=== PATIENT | female | born 1945 | race African-American/Black ===

== ENCOUNTER 2017-02-09 19:22 | Emergency (ER) | payer OTHER ==
[2017-02-09 19:56] VITALS: BP 122/63; PULSE 79; TEMP 97.9; BMI 34.7
--- NOTE | 2017-02-09 20:37 | PDOC ---
History of Present Illness - General Chief Complaint: Injury Stated Complaint: INJURY Time Seen by Provider: 02/09/17 20:13 History Source: Patient Exam Limitations: No Limitations - History of Present Illness Initial Comments: 02/09/17 20:32 Patient a 71F with a pmh significant for uncontrolled diabetes here today complaining of a head injury. At noon today, a door that she was attempting to fix fell and landed on her forehead. She denies trauma to any other location. She denies any precipitating event before the event, including dizziness, lightheadedness, feeling sweaty or nauseous. She denies loss of consciousness, nausea, vomiting, focal neuro deficits, chest pain and shortness of breath. She stats that she remembers the entire event. Past History - Past Medical History Allergies/Adverse Reactions: Allergies Allergy/AdvReac Type Severity Reaction Status Date / Time No Known Allergies Allergy Verified 02/09/17 19:54 Home Medications: Ambulatory Orders Atorvastatin Ca [Lipitor -] 40 mg PO HS 11/29/14 Colesevelam HCl [Welchol] 625 mg PO BID 11/29/14 Esomeprazole Mag Trihydrate [Nexium] 20 mg PO DAILY 11/29/14 Olmesartan/Amlodipin/Hcthiazid [Tribenzor 40-5-25 mg Tablet] 1 each PO AM Sitagliptin Phos/Metformin HCl [Janumet 50-1,000 mg Tablet] 1 tab PO BID Aspirin [ASA -] 81 mg PO DAILY 02/09/17 Insulin (Levemir) [Levemir Vial] 10 unit SQ DAILY 02/09/17 Anemia: No Cardiac Disorders: Yes Diabetes: Yes HTN: Yes Hypercholesterolemia: Yes Suicide Attempt (Hx): No - Surgical History Appendectomy: Yes Cholecystectomy: Yes - Psycho/Social/Smoking Cessation Hx Suicidal Ideation: No Smoking Status: No Smoking History: Never smoked Have you smoked in the past 12 months: No Number of Cigarettes Smoked Daily: 0 Hx Alcohol Use: No Drug/Substance Use Hx: No Substance Use Type: None Hx Substance Use Treatment: No Review of Systems - Review of Systems Constitutional: No: Chills, Fever HEENTM: No: Recent change in vision Respiratory: No: Shortness of Breath Cardiac (ROS): No: Chest Pain, Lightheadedness, Palpitations, Syncope ABD/GI: No: Nausea, Vomiting : Yes: Frequency Musculoskeletal: No: Back Pain, Joint Pain Neurological: Yes: Headache. No: Seizure, Weakness, Dizziness Endocrine: Yes: Increased Thirst, Increased Urine *Physical Exam - Vital Signs Last Vital Signs Temp Pulse Resp BP Pulse Ox 97.9 F 79 18 122/63 99 02/09/17 19:51 02/09/17 19:51 02/09/17 19:51 02/09/17 19:51 02/09/17 19:51 - Physical Exam Comments: 02/09/17 20:59 Constitutional: Well-appearing, well-nourished, in no apparent distress HEENT: 3x1 cm hematoma on the right side of the forehead. No trauma to nose, cheeks, scalp, ears or neck. No hemotympanum EYES: PERRL; EOM intact Neck: Supple, nontender CV: RRR, no murmurs rubs or gallops Resp: Normal work of breathing, clear to auscultation bilaterally Abd: Soft, nontender, normal bowel sounds Back: Midline and paraspinal areas nontender Ext: Normal ROM in all four extremities, nontender to palpation, 2+ pulses Neuro: Alert, oriented, CN2-12 intact, normal gait, cerebellar function normal ED Treatment Course - RADIOLOGY Radiology Studies Ordered: Category Date Time Status HEAD CT WITHOUT CONTRAST [CT] Stat CT Scan 02/09/17 20:29 Ordered Medical Decision Making - Medical Decision Making 02/09/17 21:08 Patient is a 71F with uncontrolled DM, HTN and HLD here today complaining to trauma to head. Patient's vital signs are stable and normal. Neuro and mental status exam is normal. Patient strongly denies any precipitating event that suggests a cardiac cause of the trauma. [place] CT rules do not rule out the need for a CT older than [address]. Will do [address], fingerstick glucose, and ekg. 02/10/17 00:19 CT and EKG normal. Fingerstick glucose elevated but not suggestive of HHS/DKA. Patient's mental status continues to be normal. Counseled on diabetes management. Will discharge with return precautions. *DC/Admit/Observation/Transfer Diagnosis at time of Disposition: Head injury due to trauma Qualifiers: Encounter type: initial encounter Qualified Code(s): S09.90XA - Unspecified injury of head, initial encounter - Discharge Dispostion Disposition: HOME Condition at time of disposition: Good Admit: No - Referrals Referrals: Paul Monzon MD [Primary Care Provider] - - Attestations Physician Attestion: 02/09/17 23:37 I, Dr. Jose Steel, attest that this document has been prepared under my direction and personally reviewed by me in its entirety. I further attest, that it accurately reflects all work, treatment, procedures and medical decision -making performed by me.
--- NOTE | 2017-02-09 21:18 | PDOC ---
Attending Attestation - Resident Resident Name: Jose Steel - ED Attending Attestation I have performed the following: I have examined & evaluated the patient, The case was reviewed & discussed with the resident, I agree w/resident's findings & plan, Exceptions are as noted - HPI HPI: 02/09/17 23:39 71-year-old female with history of diabetes presents to the ER with a traumatic head injury after a wooden door fell onto her head. Patient denies LOC/amnesia/ changes in visual acuity/nausea/vomiting/weakness or paresthesias of extremities /neck pain. - Physicial Exam PE: 02/09/17 23:40 Patient is awake and alert, nontoxic appearing, with a right frontal scalp hematoma without bony crepitus or step-offs. Cranial nerves II through XII are grossly intact; motor is 5 of 54; no pronation drift; gait is stable. - Medical Decision Making 02/09/17 23:40 Patient 71-year-old female who presents with traumatic right frontal scalp hematoma after a minor head injury. CT of head shows no evidence of acute intracranial pathology. Will discharge with closed head injury instructions.
--- NOTE | 2017-02-11 13:49 | EKG ---
Test Reason : Blood Pressure : / mmHG Vent. Rate : 063 BPM Atrial Rate : 063 BPM P-R Int : 192 ms QRS Dur : 092 ms QT Int : 432 ms P-R-T Axes : -13 -44 032 degrees QTc Int : 442 ms NORMAL SINUS RHYTHM LEFT AXIS DEVIATION ABNORMAL ECG WHEN COMPARED WITH ECG OF 29-NOV-2014 15:47, T WAVE VARIATION Confirmed by JAE OMALLEY MD ([id number]) on 02/11/2017 1:49:17 PM Referred By: Confirmed By:JAE OMALLEY MD
== END 2017-02-10 00:03 | disposition home or self-care (01) ==
LOC: JER 19:22
DX: S00.83XA Contusion of other part of head, initial encounter (principal); W01.198A Fall on same level from slipping, tripping and stumbling with subsequent striking against other object, initial encounter; Y93.89 Activity, other specified; Y92.89 Other specified places as the place of occurrence of the external cause; I10 Essential (primary) hypertension; E78.00 Pure hypercholesterolemia, unspecified; E11.9 Type 2 diabetes mellitus without complications; Z79.4 Long term (current) use of insulin; Z79.84 Long term (current) use of oral hypoglycemic drugs
CPT/HCPCS: 70450-TC; 93005; 93010; 99282-25

== ENCOUNTER 2019-03-11 11:19 | Emergency (ER) | payer OTHER ==
[2019-03-11 11:28] VITALS: BP 126/51; PULSE 84; TEMP 98.5; BMI 54.8
[2019-03-11] MEDS ORDERED: IBUPROFEN 400 MG TABLET (FP) PO ONE ×2 (11:55→12:05)
--- NOTE | 2019-03-11 12:09 | PDOC ---
History of Present Illness - General Chief Complaint: Pain, Acute Stated Complaint: RT SHOULDER PAIN Time Seen by Provider: 03/11/19 11:30 History Source: Patient Exam Limitations: No Limitations - History of Present Illness Initial Comments: 03/11/19 12:00 73-year-old female presents to the ED with complaints of right shoulder pain intimately for the past year after falling and is aggravated normally with activity such as bowling. Patient states last night had slept on the right side when she woke up she had pain to the area. Patient states has limited range of motion with raising arm past shoulder height and has not taken anything for discomfort. Patient denies radiation of pain, sensory changes distal of injury. Timing/Duration: 24 hours Severity: mild Associated Symptoms: reports: other Past History - Travel Traveled outside of the country in the last 30 days: No Close contact w/someone who was outside of country & ill: No - Past Medical History Allergies/Adverse Reactions: Allergies Allergy/AdvReac Type Severity Reaction Status Date / Time No Known Allergies Allergy Verified 03/11/19 11:27 Home Medications: Ambulatory Orders Atorvastatin Ca [Lipitor -] 40 mg PO HS 11/29/14 Colesevelam HCl [Welchol] 625 mg PO BID 11/29/14 Esomeprazole Mag Trihydrate [Nexium] 20 mg PO DAILY 11/29/14 Olmesartan/Amlodipin/Hcthiazid [Tribenzor 40-5-25 mg Tablet] 1 each PO AM Sitagliptin Phos/Metformin HCl [Janumet 50-1,000 mg Tablet] 1 tab PO BID Aspirin [ASA -] 81 mg PO DAILY 02/09/17 Insulin (Levemir) [Levemir Vial] 10 unit SQ DAILY 02/09/17 Anemia: No Cardiac Disorders: Yes COPD: No Diabetes: Yes HTN: Yes Hypercholesterolemia: Yes - Surgical History Appendectomy: Yes Cholecystectomy: Yes - Suicide/Smoking/Psychosocial Hx Smoking Status: No Smoking History: Never smoked Have you smoked in the past 12 months: No Number of Cigarettes Smoked Daily: 0 Hx Alcohol Use: No Drug/Substance Use Hx: No Substance Use Type: None Hx Substance Use Treatment: No Patient Lives Alone: No Lives with/in: spouse/SO Review of Systems - Review of Systems Able to Perform ROS?: Yes Constitutional: No: Symptoms Reported Musculoskeletal: Yes: Joint Pain (rt shoulder). No: Muscle Pain, Muscle Weakness Neurological: No: Symptoms reported, Numbness, Tingling, Weakness *Physical Exam - Vital Signs Last Vital Signs Temp Pulse Resp BP Pulse Ox 98.5 F 84 18 126/51 L 97 03/11/19 11:23 03/11/19 11:23 03/11/19 11:23 03/11/19 11:23 03/11/19 11:23 - Physical Exam General Appearance: Yes: Nourished, Appropriately Dressed. No: Apparent Distress Comments:: 03/11/19 12:09 2+ right radial Extremity: positive: Normal Inspection, Tender (anterior aspect of rt shoulder ) . negative: Normal Range of Motion (unable to perform lat or front raise greater than 60 degrees due to discomfort) Integumentary: positive: Normal Color, Warm, Moist Neurologic: positive: Motor Strength 5/5 (5 + rt shoulder shrug and hand grasp) ED Treatment Course - RADIOLOGY Radiology Studies Ordered: Category Date Time Status SHOULDER-RIGHT [RAD] Stat Radiology 03/11/19 11:55 Ordered Medical Decision Making - Medical Decision Making 03/11/19 12:05 CC: rt shoulder pain upon awakening yesterday, + intermittent shoulder pain since fall last year worsened with activity [place]. bowling, no sensory changes or radiation of pain, no meds taken Exam: LROM w/ lat / front raise , tender to ant aspect of rt shoulder Plan: motrin and shoulder xray 03/11/19 12:51 xray - for acute patholgy. dc home with ortho referral *DC/Admit/Observation/Transfer Diagnosis at time of Disposition: Right shoulder pain - Discharge Dispostion Disposition: HOME Condition at time of disposition: Improved - Referrals Referrals: Paul Monzon MD [Primary Care Provider] - Pete Landon MD [Staff Physician] - - Patient Instructions Printed Discharge Instructions: DI for Shoulder Pain Additional Instructions: I recommend to take Motrin 600mg every 8 hrs for pain. Apply heat to area and follow up with orthopedist - Post Discharge Activity
== END 2019-03-11 13:02 | disposition home or self-care (01) ==
LOC: JERFT 11:19
DX: M25.511 Pain in right shoulder (principal); I10 Essential (primary) hypertension; E78.00 Pure hypercholesterolemia, unspecified; E11.9 Type 2 diabetes mellitus without complications; Z79.4 Long term (current) use of insulin
CPT/HCPCS: 73030-TC-RT-FY; 99281-25

== ENCOUNTER 2019-04-22 00:16 | Emergency (ER) | payer OTHER ==
[2019-04-22 00:48] VITALS: BMI 36.6
--- NOTE | 2019-04-22 01:27 | PDOC ---
Attending Attestation - Resident Resident Name: José LuisWanda - ED Attending Attestation I have performed the following: I have examined & evaluated the patient, The case was reviewed & discussed with the resident, I agree w/resident's findings & plan - HPI HPI: 04/22/19 06:11 see resident hpi - Physicial Exam PE: 04/22/19 06:11 agree with resident exam - Medical Decision Making 04/22/19 06:11 73 yo with reproducible left upper back pain EKG with no S-T segment elevations chest x ray with [facility] plan for trop x 2 and d/c if negative
[2019-04-22 02:51] LABS: BASO % 0.5 % (0-2.0); HEMATOCRIT 39.3 % (32.4-45.2); LYMPH % 29.2 % (8-40); MCH 29.2 pg (25.7-33.7); MCHC 33.1 g/dl (32.0-36.0); MEAN CELL VOLUME 88.2 fl (80-96); MEAN PLT VOLUME 7.7 fl (7.5-11.1); MONO % 9.5 % (3.8-10.2); NEUT % 57.8 % (42.8-82.8); PLATELET COUNT 276 K/MM3 (134-434); RBC 4.46 M/mm3 (3.60-5.2); RDW 14.3 % (11.6-15.6); WHITE BLOOD COUNT 5.9 K/mm3 (4.0-10.0)
[2019-04-22 03:17] LABS: ALBUMIN 3.6 g/dl (3.4-5.0); BILIRUBIN,TOTAL 0.4 mg/dL (0.2-1); BLOOD UREA NITROGEN 18.5 mg/dL (7-18); CREATININE 0.9 mg/dL (0.55-1.3); POTASSIUM 3.9 mmol/L (3.5-5.1); TOT PROT 7.2 g/dl (6.4-8.2)
[2019-04-22] MEDS ORDERED: ACETAMINOPHEN 1000 MG/100 ML VIAL (NON FORMULARY) IVPB ONE (03:42)
[2019-04-22] MEDS ORDERED: ACETAMINOPHEN INJECTION 100 ML IVPB ONE (03:50)
--- NOTE | 2019-04-22 04:19 | PDOC ---
History of Present Illness - General Chief Complaint: Pain Stated Complaint: LEFT ARM AND BACK PAIN Time Seen by Provider: 04/22/19 01:26 - History of Present Illness Initial Comments: Laxmi Olvera is a 73yo with a PMH of HTN, HLD, DM who presents with 2 days of left shoulder pain. She states that the pain had been present on Saturday, and she went to see her PMD. She had an EKG and was told that everything looked OK. The pain resolved, but it returned overnight and prevented her from sleeping. She states that the pain is mostly on the left posterior shoulder but goes across her back. It worsens with direct palpation and movement. She denies any anterior chest pain, difficulty breathing, lightheadedness, nausea or any other associated symptoms though states she has been coughing frequently lately due to environmental allergies. Past History - Past Medical History Allergies/Adverse Reactions: Allergies Allergy/AdvReac Type Severity Reaction Status Date / Time No Known Allergies Allergy Verified 04/22/19 00:40 Home Medications: Ambulatory Orders Atorvastatin Ca [Lipitor -] 40 mg PO HS 11/29/14 Colesevelam HCl [Welchol] 625 mg PO BID 11/29/14 Esomeprazole Mag Trihydrate [Nexium] 20 mg PO DAILY 11/29/14 Olmesartan/Amlodipin/Hcthiazid [Tribenzor 40-5-25 mg Tablet] 1 each PO AM Sitagliptin Phos/Metformin HCl [Janumet 50-1,000 mg Tablet] 1 tab PO BID Aspirin [ASA -] 81 mg PO DAILY 02/09/17 Insulin (Levemir) [Levemir Vial] 25 unit SQ DAILY 02/09/17 Anemia: No Cardiac Disorders: Yes COPD: No Diabetes: Yes HTN: Yes Hypercholesterolemia: Yes - Surgical History Appendectomy: Yes Cholecystectomy: Yes - Suicide/Smoking/Psychosocial Hx Smoking Status: No Smoking History: Never smoked Have you smoked in the past 12 months: No Number of Cigarettes Smoked Daily: 0 Hx Alcohol Use: No Drug/Substance Use Hx: No Substance Use Type: None Hx Substance Use Treatment: No Review of Systems - Review of Systems Comments:: General: No fevers, no chills, no weight or appetite change, no malaise HEENT: No changes in vision, no changes in hearing, no congestion, no sore throat CV: No chest pain, no palpitations, no LE edema Pulm: No SOB, no cough, no wheezing GI: No nausea or vomiting, no change in bowel habits, no melena : No frequency, no urgency, no dysuria Musc: See HPI Skin: No rash, no lesions, no erythema Endo: No excessive thirst, no heat/cold intolerance Heme: No unusual bruising or bleeding, no swollen glands Neuro: No syncope, no numbness/tingling, no focal weakness Vasc: No claudication Psych: No recent change in mood, no SI or HI *Physical Exam - Vital Signs Last Vital Signs Temp Pulse Resp BP Pulse Ox 98.3 F 72 20 160/76 100 04/22/19 00:39 04/22/19 01:53 04/22/19 01:53 04/22/19 01:53 04/22/19 01:53 - Physical Exam Comments: General: Comfortable, no acute distress HEENT: PERRL, EOMI, MMM, voice normal, normal neck ROM Cards: RRR, no murmur appreciated Pulm: Comfortable on room air, clear to auscultation bilaterally Abd: Soft, nontender, nondistended Back: Reproducible tenderness over left scapula Ext: Atraumatic. No LE edema. ROM intact. WWP Skin: Normal color, no rashes or lesions Neuro: A&Ox3, CN grossly intact, normal speech, motor/sensory grossly intact and symmetric Psych: Mood appropriate to situation ED Treatment Course - LABORATORY CBC & Chemistry Diagram: 04/22/19 02:30 04/22/19 02:30 - ADDITIONAL ORDERS Additional order review: Laboratory Results 04/22/19 04/22/19 02:30 02:30 Sodium 138 Potassium 3.9 Chloride 106 Carbon Dioxide 26 Anion Gap 7 L BUN 18.5 H Creatinine 0.9 Est GFR (CKD-EPI)AfAm 74.56 Est GFR (CKD-EPI)NonAf 64.33 Random Glucose 194 H Calcium 9.0 Total Bilirubin 0.4 AST 19 ALT 20 Alkaline Phosphatase 77 Creatine Kinase 84 Troponin I < 0.02 Total Protein 7.2 Albumin 3.6 04/22/19 02:30 RBC 4.46 MCV 88.2 MCHC 33.1 RDW 14.3 MPV 7.7 Neutrophils % 57.8 Lymphocytes % 29.2 Monocytes % 9.5 Eosinophils % 3.0 Basophils % 0.5 - RADIOLOGY Radiology Studies Ordered: Category Date Time Status CHEST PA & LAT [RAD] Stat Radiology 04/22/19 02:09 Taken - Medications Given in the ED: ED Medications Discontinued Medications Generic Name Dose Route Start Last Admin Trade Name Ori PRN Reason Stop Dose Admin Acetaminophen 1,000 mg 04/22/19 03:42 04/22/19 03:53 Ofirmev Injection - IVPB 04/22/19 03:43 1,000 mg ONCE ONE Administration Medical Decision Making - Medical Decision Making 04/22/19 01:45 Laxmi Olvera is a 73yo with a PMH of HTN, HLD, DM who presents with 2 days of left shoulder pain. - Pain reproducible at left scapula, most likely musculoskeletal - Given risk factors, will evaluate for cardiac causes of chest pain though no associated symptoms or exacerbating factors that suggest ACS - CBC, CMP, EKG, CXR, trop - Acetaminophen for pain 04/22/19 03:57 - Labs reviewed, unremarkable - EKG w/ NSR, HR 64, left axi, normal intervals. Similar to EKG from 2017 - Pt still having pain; acetaminophen not completed due to arm remaining bent - Repeat trop at 3hrs 04/22/19 04:47 - 2nd trop ordered - Toradol for continued pain 04/22/19 05:50 - Trop pending - Pt states that her pain has now resolved - Given very low suspicion for cardiac cause of pain, initial negative trop, unchanged EKG, will discharge. If 2nd trop is elevated, will call pt. She agrees to return to the hospital if this occurs - Discussed home care, return precautions, and PMD follow up at length. She states understanding and agreement with this plan. Discussed with Dr Hutson. Wanda Ordonez PGY2 *DC/Admit/Observation/Transfer Diagnosis at time of Disposition: Upper back pain on left side - Discharge Dispostion Disposition: HOME Condition at time of disposition: Stable Decision to Admit order: No - Referrals Referrals: Paul Monzon MD [Primary Care Provider] - - Patient Instructions Printed Discharge Instructions: DI for Muscle Strain Additional Instructions: Discharge Instructions: You were seen in the emergency department for back pain. Your blood tests, EKG, and chest xray did not show any concerns. Home Care and Follow Up: - You may use over the counter medications as needed for pain at home. 650- 1000mg acetaminophen (Tylenol) or 600mg ibuprofen (Motrin or Advil) can be used every 6-8 hours. If needed for continued pain, these medications may be alternated every 3-4 hours. For example, if you take ibuprofen at 9am, you may take acetaminophen at noon, ibuprofen at 3pm, etc. - It is strongly recommended that you take ibuprofen with food to help prevent stomach irritation. - You may buy a numbing patch that contains lidocaine (the patch is 4% lidocaine ) that can be placed over the areas of greatest pain. The lidocaine patch may be placed for 12 hours then removed for 12 hours. - Try using an ice pack for 20 minutes every hour or a heating pad for additional pain control. These should NOT be used over the lidocaine patch, but you may place them over the areas of pain while the patch is off. - Do not stop moving around. As much as you can tolerate, continue to do light exercise and stretching exercises. Increase your activity level as much as you can tolerate daily. - If your pain does not improve over the next week, see your regular doctor for follow up. - Seek immediate medical care if you have significant worsening of your symptoms , you have difficulty breathing, you have any chest pain, you have pain with nausea, vomiting or sweating, or you have any other medical emergency. - Post Discharge Activity
[2019-04-22] MEDS ORDERED: KETOROLAC TROMETHAMINE 15 MG/ML VIAL IVPUSH ONE (04:47)
[2019-04-22] MEDS ORDERED: KETOROLAC TROMETHAMINE 15 MG/ML VIAL ONE (05:41)
[2019-04-22 06:32] VITALS: BP 141/58; PULSE 62; TEMP 97.8
--- NOTE | 2019-04-22 11:26 | EKG ---
Test Reason : Blood Pressure : / mmHG Vent. Rate : 064 BPM Atrial Rate : 064 BPM P-R Int : 198 ms QRS Dur : 084 ms QT Int : 438 ms P-R-T Axes : -19 -42 000 degrees QTc Int : 451 ms NORMAL SINUS RHYTHM LEFT AXIS DEVIATION LOW VOLTAGE QRS CANNOT RULE OUT ANTERIOR INFARCT , AGE UNDETERMINED ABNORMAL ECG WHEN COMPARED WITH ECG OF 09-FEB-2017 22:40, NO SIGNIFICANT CHANGE WAS FOUND Confirmed by DAMON LACKEY, SULY ([id number]) on 04/22/2019 11:25:58 AM Referred By: Confirmed By:SULY JOSE MD
== END 2019-04-22 06:20 | disposition home or self-care (01) ==
LOC: JER 00:16
PROC: 3E0333Z Introduction of Anti-inflammatory into Peripheral Vein, Percutaneous Approach (ICD-10-PCS; principal; 2019-04-22)
PROC: 3E033NZ Introduction of Analgesics, Hypnotics, Sedatives into Peripheral Vein, Percutaneous Approach (ICD-10-PCS; 2019-04-22)
DX: M54.6 Pain in thoracic spine (principal); I10 Essential (primary) hypertension; E78.5 Hyperlipidemia, unspecified; E11.9 Type 2 diabetes mellitus without complications; Z79.4 Long term (current) use of insulin; Z79.84 Long term (current) use of oral hypoglycemic drugs
CPT/HCPCS: 36415; 71046-TC-FY; 80053; 82550; 84484; 85025; 93005; 93010; 96374; 96375; 99283-25; J0131

== ENCOUNTER 2022-04-25 14:21 | Emergency (ER) | payer OTHER ==
[2022-04-25] MEDS ORDERED: CALCIUM GLUCONATE 10% - 1,000 MG/10 ML VIAL ONE (14:39)
[2022-04-25] MEDS ORDERED: ATROPINE SULFATE 1 MG/10 ML DISP.SYRIN IVPUSH ONE (14:47)
[2022-04-25] MEDS ORDERED: CALCIUM GLUCONATE 10% - 1,000 MG/10 ML VIAL IVPUSH ONE (14:48)
[2022-04-25] MEDS ORDERED: ATROPINE SULFATE 1 MG/10 ML DISP.SYRIN ONE (14:54)
[2022-04-25 15:18] VITALS: RESP 20; TEMP 98.2; BMI 33.3
[2022-04-25] MEDS ORDERED: ACETAMINOPHEN 1000 MG/100 ML BAG IVPB ONE (16:24)
[2022-04-25 16:34] LABS: BASO % 0.9 % (0-2.0); HEMATOCRIT 41.2 % (32.4-45.2); HEMOGLOBIN 13.6 GM/dL (10.7-15.3); LYMPH % 40.5 % (8-40); MCH 29.4 pg (25.7-33.7); MCHC 32.9 g/dl (32.0-36.0); MEAN CELL VOLUME 89.3 fl (80-96); MEAN PLT VOLUME 8.6 fl (7.5-11.1); MONO % 11.3 % (3.8-10.2); NEUT % 46.3 % (42.8-82.8); PLATELET COUNT 291 10^3/uL (134-434); RBC 4.61 M/mm3 (3.60-5.2); RDW 14.9 % (11.6-15.6); WHITE BLOOD COUNT 5.4 K/mm3 (4.0-10.0)
[2022-04-25 16:46] LABS: ALBUMIN 3.5 g/dl (3.4-5.0); BLOOD UREA NITROGEN 23.9 mg/dL (7-18); CALCIUM 9.4 mg/dL (8.5-10.1)
[2022-04-25 16:51] LABS: BILIRUBIN,TOTAL 0.4 mg/dL (0.2-1); TOT PROT 7.1 g/dl (6.4-8.2)
[2022-04-25] MEDS ORDERED: ACETAMINOPHEN INJECTION 100 ML IVPB ONE (16:53)
[2022-04-25 16:54] LABS: N-TERMINAL BNP 2033.7 pg/ml (5-125)
[2022-04-25 17:08] LABS: INR 0.99 (0.83-1.09); PROTHROMBIN TIME (PATIENT) 11.4 SEC (9.7-13.0)
[2022-04-25 17:11] LABS: ACTIVATED PTT 27.3 SECONDS (25.2-36.5)
[2022-04-25 18:48] VITALS: BP 189/51
[2022-04-25 19:53] VITALS: PULSE 38
== END 2022-04-25 18:50 | disposition short-term general hospital (02) ==
LOC: JER 14:21
PROC: 3E033GC Introduction of Other Therapeutic Substance into Peripheral Vein, Percutaneous Approach (ICD-10-PCS; principal; 2022-04-25)
DX: R55 Syncope and collapse (principal); I44.30 Unspecified atrioventricular block
CPT/HCPCS: 36415; 71045-TC-FY; 80053; 83735; 83880; 84484; 85025; 85610; 85730; 93005; 93010; 99291; C9803-CS; U0003; U0005

== ENCOUNTER 2022-07-06 15:19 | Inpatient (IN) | payer OTHER ==
[2022-07-06 15:42] VITALS: BMI 31.1
[2022-07-06 17:02] LABS: BASO % 0.8 % (0-2.0); EOS % 0.8 % (0-4.5); HEMATOCRIT 43.2 % (32.4-45.2); HEMOGLOBIN 14.3 GM/dL (10.7-15.3); LYMPH % 54.4 % (8-40); MCH 28.4 pg (25.7-33.7); MCHC 33.1 g/dl (32.0-36.0); MEAN CELL VOLUME 85.9 fl (80-96); MEAN PLT VOLUME 7.9 fl (7.5-11.1); MONO % 16.9 % (3.8-10.2); NEUT % 27.1 % (42.8-82.8); PLATELET COUNT 207 10^3/uL (134-434); RBC 5.02 M/mm3 (3.60-5.2); RDW 15.1 % (11.6-15.6); WHITE BLOOD COUNT 2.9 K/mm3 (4.0-10.0)
[2022-07-06] MEDS ORDERED: ACETAMINOPHEN 500 MG TABLET (FP) PO ONE (17:19)
[2022-07-06 17:25] LABS: CALCIUM 8.9 mg/dL (8.5-10.1)
[2022-07-06 17:26] LABS: ALBUMIN 3.2 g/dl (3.4-5.0); BLOOD UREA NITROGEN 19.8 mg/dL (7-18); MAGNESIUM 1.8 mg/dL (1.8-2.4)
[2022-07-06 17:31] LABS: BILIRUBIN,TOTAL 0.5 mg/dL (0.2-1); TOT PROT 7.3 g/dl (6.4-8.2)
[2022-07-06] MEDS ORDERED: ACETAMINOPHEN 500 MG TABLET (FP) ONE (20:05)
[2022-07-07 03:00] LABS: EPI CELLS >36 /uL (0-25.1); HYALINE CASTS 2 /uL (0-3.1); PH,URINE 5.5 (5.0-8.0); URINE APPEARANCE CLEAR; URINE BACTERIA 8536 /uL (0-1359); URINE BILIRUBIN NEGATIVE (NEGATIVE); URINE COLOR YELLOW; URINE GLUCOSE (UA) NEGATIVE (NEGATIVE); URINE KETONE TRACE (NEGATIVE); URINE LEUK ESTERASE 1+ (NEGATIVE); URINE NITRITE POSITIVE (NEGATIVE); URINE PROTEIN NEGATIVE (NEGATIVE); URINE RBC 6 /uL (0-23.9); URINE WBC 58 /uL (0-25.8)
[2022-07-07] MEDS: ENOXAPARIN NA (PORCINE) 40 MG/0.4 ML DISP.SYRIN SQ SCH (10:01)
[2022-07-07] MEDS: ASPIRIN 81 MG CHEWABLE TABLETS PO SCH (10:01)
[2022-07-07] MEDS ORDERED: ACETAMINOPHEN 325 MG TABLET (FP) PO PRN (14:58)
[2022-07-07] MEDS: OSELTAMIVIR PHOSPHATE 75 MG CAPSULE PO SCH ×2 (15:49→22:16)
[2022-07-07] MEDS: DEXTROSE 5%-0.45% SALINE 1,000 ML IV SCH (15:53)
[2022-07-07] MEDS: INSULIN SLIDING SCALE (NOVOLOG) 1 VIAL SQ SCH ×2 (17:48→22:15)
[2022-07-07] MEDS: ATORVASTATIN CA 80 MG TABLET (FP) PO SCH (22:16)
[2022-07-08] MEDS: INSULIN SLIDING SCALE (NOVOLOG) 1 VIAL SQ SCH ×4 (06:20→21:17)
[2022-07-08] MEDS: ASPIRIN 81 MG CHEWABLE TABLETS PO SCH (09:26)
[2022-07-08] MEDS: ENOXAPARIN NA (PORCINE) 40 MG/0.4 ML DISP.SYRIN SQ SCH (09:26)
[2022-07-08] MEDS: OSELTAMIVIR PHOSPHATE 75 MG CAPSULE PO SCH ×2 (09:26→21:15)
[2022-07-08 09:46] LABS: EOS % 0.6 % (0-4.5); HEMATOCRIT 43.2 % (32.4-45.2); HEMOGLOBIN 14.2 GM/dL (10.7-15.3); LYMPH % 50.5 % (8-40); MCH 28.4 pg (25.7-33.7); MCHC 32.8 g/dl (32.0-36.0); MEAN CELL VOLUME 86.4 fl (80-96); MEAN PLT VOLUME 7.9 fl (7.5-11.1); MONO % 10.1 % (3.8-10.2); NEUT % 37.8 % (42.8-82.8); PLATELET COUNT 203 10^3/uL (134-434); RBC 4.99 M/mm3 (3.60-5.2); RDW 14.8 % (11.6-15.6); WHITE BLOOD COUNT 2.9 K/mm3 (4.0-10.0)
[2022-07-08 09:57] LABS: ALBUMIN 3.2 g/dl (3.4-5.0); BLOOD UREA NITROGEN 12.8 mg/dL (7-18); CALCIUM 9.1 mg/dL (8.5-10.1)
[2022-07-08 10:00] LABS: CREATININE 0.8 mg/dL (0.55-1.3)
[2022-07-08 10:01] LABS: BILIRUBIN,TOTAL 0.4 mg/dL (0.2-1)
[2022-07-08] MEDS: DEXTROSE 5%-0.45% SALINE 1,000 ML IV SCH ×2 (10:37→16:34)
[2022-07-08] MEDS: VALSARTAN 40 MG TABLET PO SCH (17:51)
[2022-07-08] MEDS: amLODIPine BESYLATE 5 MG TABLET (FP) PO SCH (17:51)
[2022-07-08] MEDS: CEFTRIAXONE 1 GM in DEXTROSE 5%-WATER - 50 ML IVPB SCH (19:08)
[2022-07-08] MEDS: ATORVASTATIN CA 80 MG TABLET (FP) PO SCH (21:15)
[2022-07-09] MEDS: INSULIN SLIDING SCALE (NOVOLOG) 1 VIAL SQ SCH ×4 (06:23→22:01)
[2022-07-09 09:29] LABS: BASO % 0.8 % (0-2.0); EOS % 0.6 % (0-4.5); HEMOGLOBIN 13.3 GM/dL (10.7-15.3); LYMPH % 46.4 % (8-40); MCH 28.5 pg (25.7-33.7); MCHC 33.3 g/dl (32.0-36.0); MEAN CELL VOLUME 85.8 fl (80-96); MEAN PLT VOLUME 7.9 fl (7.5-11.1); MONO % 11.6 % (3.8-10.2); NEUT % 40.6 % (42.8-82.8); PLATELET COUNT 221 10^3/uL (134-434); RBC 4.66 M/mm3 (3.60-5.2); RDW 14.4 % (11.6-15.6); WHITE BLOOD COUNT 3.5 K/mm3 (4.0-10.0)
[2022-07-09] MEDS: amLODIPine BESYLATE 5 MG TABLET (FP) PO SCH (09:43)
[2022-07-09] MEDS: CEFTRIAXONE 1 GM in DEXTROSE 5%-WATER - 50 ML IVPB SCH (09:43)
[2022-07-09] MEDS: ASPIRIN 81 MG CHEWABLE TABLETS PO SCH (09:44)
[2022-07-09] MEDS: VALSARTAN 40 MG TABLET PO SCH (09:44)
[2022-07-09] MEDS: OSELTAMIVIR PHOSPHATE 75 MG CAPSULE PO SCH ×2 (09:44→22:01)
[2022-07-09] MEDS: ENOXAPARIN NA (PORCINE) 40 MG/0.4 ML DISP.SYRIN SQ SCH (09:44)
[2022-07-09 10:13] LABS: CALCIUM 8.7 mg/dL (8.5-10.1)
[2022-07-09 10:14] LABS: ALBUMIN 2.9 g/dl (3.4-5.0); BLOOD UREA NITROGEN 6.9 mg/dL (7-18)
[2022-07-09 10:17] LABS: CREATININE 0.7 mg/dL (0.55-1.3)
[2022-07-09 10:18] LABS: BILIRUBIN,TOTAL 0.4 mg/dL (0.2-1)
[2022-07-09 10:19] LABS: TOT PROT 6.5 g/dl (6.4-8.2)
[2022-07-09] MEDS: DEXTROSE 5%-0.45% SALINE 1,000 ML IV SCH (15:25)
[2022-07-09] MEDS: ATORVASTATIN CA 80 MG TABLET (FP) PO SCH (21:05)
[2022-07-10] MEDS: INSULIN SLIDING SCALE (NOVOLOG) 1 VIAL SQ SCH ×2 (06:39→12:04)
[2022-07-10] MEDS ORDERED: CEFUROXIME AXETIL 250 MG TABLET PO SCH (10:00)
[2022-07-10] MEDS: ENOXAPARIN NA (PORCINE) 40 MG/0.4 ML DISP.SYRIN SQ SCH ×2 (10:34→10:51)
[2022-07-10] MEDS: amLODIPine BESYLATE 5 MG TABLET (FP) PO SCH (10:35)
[2022-07-10] MEDS: VALSARTAN 40 MG TABLET PO SCH (10:35)
[2022-07-10] MEDS: ASPIRIN 81 MG CHEWABLE TABLETS PO SCH (10:35)
[2022-07-10] MEDS: OSELTAMIVIR PHOSPHATE 75 MG CAPSULE PO SCH (12:29)
[2022-07-10 13:34] VITALS: BP 158/68; PULSE 70; RESP 20; TEMP 98.6
== END 2022-07-10 18:05 | disposition home or self-care (01) | DRG 194 ==
LOC: JER 15:19 → JERBED 18:44 → J4S 07-07 02:27
PROVIDERS: ADMIT Family Medicine Geriatric Medicine; ATTEND Family Medicine Geriatric Medicine
DX: J10.1 Influenza due to other identified influenza virus with other respiratory manifestations (principal); N39.0 Urinary tract infection, site not specified; E78.5 Hyperlipidemia, unspecified; E11.9 Type 2 diabetes mellitus without complications; E66.9 Obesity, unspecified; Z68.31 Body mass index [BMI] 31.0-31.9, adult; I10 Essential (primary) hypertension; R07.81 Pleurodynia; B96.20 Unspecified Escherichia coli [E. coli] as the cause of diseases classified elsewhere; Z95.0 Presence of cardiac pacemaker; W18.30XA Fall on same level, unspecified, initial encounter; Y92.041 Bathroom in boarding-house as the place of occurrence of the external cause
CPT/HCPCS: 0241U-QW; 36415; 70450-TC; 71045-TC-FY; 71250-TC; 72125-TC; 80053; 80061; 81003; 82550; 82553; 82962; 83036; 83735; 84443; 84484; 85025; 87086; 87186; 93005; 93010; 93306-TC; 93880-TC; 99285-25

== ENCOUNTER 2023-10-02 14:37 | Emergency (ER) | payer OTHER ==
[2023-10-02 14:51] VITALS: BP 109/80; PULSE 67; RESP 18; TEMP 98.2; BMI 33.8
== END 2023-10-02 17:30 | disposition home or self-care (01) ==
LOC: JER 14:37
DX: R05.1 Acute cough (principal); M54.9 Dorsalgia, unspecified; Z20.822 Contact with and (suspected) exposure to COVID-19
CPT/HCPCS: 0241U-QW; 71046-TC-FY; 93005; 93010; 99283-25

== ENCOUNTER 2024-02-16 11:56 | Emergency (ER) | payer OTHER ==
[2024-02-16 12:01] VITALS: BP 137/79; PULSE 69; RESP 18; TEMP 98.2; BMI 32.5
== END 2024-02-16 14:42 | disposition home or self-care (01) ==
LOC: JER 11:56 → JERFT 11:56
DX: R22.42 Localized swelling, mass and lump, left lower limb (principal)
CPT/HCPCS: 93971-TC; 99284-25